=== PATIENT | female | born 1970 | race African-American/Black ===

== ENCOUNTER 2016-10-08 21:43 | Emergency (ER) | payer MEDICAID, OTHER ==
[~2016-10-08] VITALS: Ht 160 cm; Wt 72.6 kg
[2016-10-08] MEDS ORDERED: LORazepam 2MG/ML-1ML VIAL ONE (21:46)
[2016-10-08] MEDS ORDERED: LORazepam 2MG/ML-1ML VIAL IV ONE (22:00)
[2016-10-08] MEDS ORDERED: MORPHINE SULF INJ 2 MG/ML SYRINGE 1ML IV ONE (23:15)
[2016-10-08] MEDS ORDERED: ONDANSETRON HCL 4 MG/2 ML VIAL IV ONE (23:15)
[2016-10-08] MEDS ORDERED: cefTRIAXone 1GM/50ML D5W 50 ML IV ONE (23:15)
[2016-10-08 23:22] VITALS: BP 118/76
== END 2016-10-09 01:00 | disposition home or self-care (01) ==
LOC: EDBD 21:43 → ER 21:49
DX: H66.92 Otitis media, unspecified, left ear (principal); J02.9 Acute pharyngitis, unspecified; J45.909 Unspecified asthma, uncomplicated; B19.20 Unspecified viral hepatitis C without hepatic coma; E11.9 Type 2 diabetes mellitus without complications; K31.84 Gastroparesis; F17.210 Nicotine dependence, cigarettes, uncomplicated; F15.10 Other stimulant abuse, uncomplicated
CPT/HCPCS: 82962; 96365; 96375; 99284; J0696; J2060; J2270; J2405; J7030

== ENCOUNTER 2016-12-18 18:58 | Emergency (ER) | payer MEDICAID ==
[~2016-12-18] VITALS: Ht 170.2 cm; Wt 72.6 kg
[2016-12-18 20:12] LABS: Urine Bilirubin Negative (Negative); Urine Blood Negative /uL (Negative); Urine Color Yellow (Yellow); Urine Glucose 4+ mg/dL (Normal); Urine Ketone Negative (Negative); Urine Nitrite Negative (Negative); Urine RBC 1 /hpf (0 - 4); Urine Squamous Epithelial Cell FEW /hpf (<5); Urine Urobilinogen Normal (Negative); Urine pH 5.5 (5.0-8.0)
[2016-12-18 20:31] LABS: Basophils # (auto) 0 uL; Basophils % (auto) 0.4 % (0.0-2.0); DEFINITIVE VIEW TRANSMISSION; Eosinophils # (auto) 0.1 uL; Eosinophils % (auto) 0.7 % (0.0-7.0); Hemoglobin 14.3 g/dL (12.2-16.2); Lymphocytes # (auto) 2.4 uL; Lymphocytes % (auto) 29.7 % (10.0-50.0); Mean Corpuscular Hemoglobin 24.4 pg (28.0-32.0); Mean Corpuscular Hgb Conc. 33.3 g/dL (32.0-36.0); Mean Corpuscular Volume 73.3 fL (80.0-100.0); Mean Platelet Volume 8.2 fL (7.4-10.4); Monocytes # (auto) 0.4 uL; Monocytes % (auto) 4.6 % (0.0-12.0); Neutrophils # (auto) 5.2 uL; Neutrophils % (auto) 64.6 % (37.0-80.0); Platelet Count (auto) 221 10^3/uL (140-450)
[2016-12-18 20:52] LABS: INR 1.04 (0.9-1.15); Partial Thromboplastin Time 25.7 sec (22.64-33.71); Prothrombin Time 10.7 sec (9.37-12.3)
[2016-12-18 21:00] LABS: Albumin 3.2 g/dL (3.4-5.0); Anion Gap 11 (5-15); Aspartate Aminotransferase 42 U/L (15-37); BUN/Creatinine Ratio 25.3; Blood Urea Nitrogen 21 mg/dL (7-18); Carbon Dioxide 24 mmol/L (21-32); Chloride 98 mmol/L (98-107); GFR African American 95 mL/min; GFR Non-African American 79 mL/min; Glucose 359 mg/dL (74-106); Potassium 3.9 mmol/L (3.5-5.1); Sodium 133 mmol/L (136-145)
[2016-12-18] MEDS ORDERED: ONDANSETRON HCL 4 MG/2 ML VIAL IV ONE (21:00)
[2016-12-18] MEDS ORDERED: SODIUM CHLORIDE 0.9% 1,000 ML IV ONE (21:00)
[2016-12-18 21:03] LABS: Alkaline Phosphatase 196 U/L (45-117); Bilirubin, Total 0.2 mg/dL (0.2-1.0); Total Protein 8.4 g/dL (6.4-8.2)
[2016-12-18 21:17] LABS: Salicylate 1.7 mg/dL (2.8-20.0)
[2016-12-18 21:25] LABS: Acetaminophen < 2.0 ug/mL (10-30)
[2016-12-18] MEDS ORDERED: LORazepam 2MG/ML-1ML VIAL IV ONE (21:30)
[2016-12-18] MEDS ORDERED: ACETAMINOPHEN 325 MG TAB PO ONE (21:30)
[2016-12-18] MEDS ORDERED: LORazepam 2MG/ML-1ML VIAL ONE (21:33)
[2016-12-19] MEDS ORDERED: ZOLPIDEM TARTRATE 5 MG TAB ONE (00:43)
[2016-12-19] MEDS ORDERED: busPIRone HCL 10 MG TAB PO ONE (00:45)
[2016-12-19] MEDS ORDERED: DEXTROSE (50%) 50ML SYRG IV PRN (13:45)
[2016-12-19] MEDS ORDERED: LORazepam 0.5 MG TAB PO ONE (13:45)
[2016-12-19] MEDS ORDERED: InsuLIN REG 1unit/0.01ml Soln (100units/ml) ONE (13:59)
[2016-12-19] MEDS: InsuLIN REG 1unit/0.01ml Soln (100units/ml) SC SCH ×2 (14:25→22:53)
[2016-12-19] MEDS: ACCU-CHEK COMFORT CURVE STRIP VI SCH ×2 (17:00→22:00)
[2016-12-19] MEDS ORDERED: InsuLIN REG 1unit/0.01ml Soln (100units/ml) SC ONE (18:00)
[2016-12-19] MEDS ORDERED: ZOLPIDEM TARTRATE 5 MG TAB PO ONE (22:00)
[2016-12-19] MEDS ORDERED: HYDROcodone-ACET 5/325MG TAB PO ONE (22:45)
[2016-12-20] MEDS: ACCU-CHEK COMFORT CURVE STRIP VI SCH ×4 (08:43→22:03)
[2016-12-20] MEDS: InsuLIN REG 1unit/0.01ml Soln (100units/ml) SC SCH ×4 (08:43→22:04)
[2016-12-20] MEDS ORDERED: LORazepam 0.5 MG TAB PO ONE (11:45)
[2016-12-20] MEDS ORDERED: LORazepam 0.5 MG TAB ONE (11:46)
[2016-12-20] MEDS ORDERED: HYDROcodone-ACET 5/325MG TAB PO PRN (22:30)
[2016-12-20] MEDS ORDERED: ACETAMINOPHEN 325 MG TAB PO ONE ×2 (22:41→22:43)
[2016-12-20] MEDS: LORazepam 0.5 MG TAB PO PRN (22:48)
[2016-12-20] MEDS ORDERED: ACETAMINOPHEN 325 MG TAB PO PRN (23:00)
[2016-12-21] MEDS: ACCU-CHEK COMFORT CURVE STRIP VI SCH ×4 (07:00→22:06)
[2016-12-21] MEDS: InsuLIN REG 1unit/0.01ml Soln (100units/ml) SC SCH ×4 (07:00→22:00)
[2016-12-21] MEDS ORDERED: InsuLIN REG 1unit/0.01ml Soln (100units/ml) ONE ×2 (08:45→13:58)
[2016-12-21] MEDS ORDERED: SODIUM CHLORIDE 0.9% 1,000 ML IV ONE ×2 (13:10→22:15)
[2016-12-21] MEDS ORDERED: InsuLIN REG 1unit/0.01ml Soln (100units/ml) IV ONE ×6 (13:15→22:15)
[2016-12-21 14:54] LABS: BUN/Creatinine Ratio 22.4; Calcium 8.2 mg/dL (8.5-10.1); Magnesium 1.6 mg/dL (1.6-2.6)
[2016-12-21 15:08] LABS: Potassium 3.4 mmol/L (3.5-5.1)
[2016-12-21] MEDS: LORazepam 0.5 MG TAB PO PRN (15:55)
[2016-12-21] MEDS ORDERED: ZOLPIDEM TARTRATE 5 MG TAB PO ONE (21:45)
[2016-12-21] MEDS ORDERED: ZOLPIDEM TARTRATE 5 MG TAB ONE (21:53)
[2016-12-22] MEDS: ACCU-CHEK COMFORT CURVE STRIP VI SCH (06:46)
[2016-12-22] MEDS: InsuLIN REG 1unit/0.01ml Soln (100units/ml) SC SCH (06:48)
[2016-12-22 09:01] VITALS: BP 130/88
== END 2016-12-22 09:28 ==
LOC: EDUNIT# 18:58 → ER 19:19
DX: F32.9 Major depressive disorder, single episode, unspecified (principal); F20.9 Schizophrenia, unspecified; F15.10 Other stimulant abuse, uncomplicated; E11.65 Type 2 diabetes mellitus with hyperglycemia; F17.210 Nicotine dependence, cigarettes, uncomplicated; J45.909 Unspecified asthma, uncomplicated
CPT/HCPCS: 36415; 80048; 80053; 80320; 80329; 81001; 82010; 82962; 83735; 85025; 85610; 85730; 96361; 96372; 96374; 96375; 99284; G0434; J1815; J2060; J2405; J7030

== ENCOUNTER 2017-01-25 07:02 | Observation (INO) | payer MEDICAID ==
[~2017-01-25] VITALS: Ht 162.6 cm; Wt 74.8 kg
[2017-01-25] MEDS ORDERED: SODIUM CHLORIDE 0.9% 1,000 ML IV ONE (09:53)
[2017-01-25] MEDS ORDERED: SODIUM CHLORIDE 0.9% 1,000 ML IVB ONE (09:53)
[2017-01-25] MEDS ORDERED: METOCLOPRAMIDE HCL 5MG/ml INJ 2ml VIAL IV ONE (10:00)
[2017-01-25] MEDS ORDERED: NALBUPHINE HCL 10 MG/1ml INJECTION IV ONE (10:00)
[2017-01-25 10:16] LABS: Urine Bilirubin Negative (Negative); Urine Blood Negative /uL (Negative); Urine Color Yellow (Yellow); Urine Ketone Negative (Negative); Urine Nitrite Negative (Negative); Urine RBC <1 /hpf (0 - 4); Urine Squamous Epithelial Cell FEW /hpf (<5); Urine Urobilinogen Normal (Negative)
[2017-01-25 10:18] LABS: Urine Glucose 4+ mg/dL (Normal)
[2017-01-25 10:59] LABS: Basophils # (auto) 0 uL; Basophils % (auto) 0.3 % (0.0-2.0); DEFINITIVE VIEW TRANSMISSION; Eosinophils # (auto) 0.1 uL; Hemoglobin 12.8 g/dL (12.2-16.2); Lymphocytes # (auto) 2.3 uL; Lymphocytes % (auto) 31.9 % (10.0-50.0); Mean Corpuscular Hgb Conc. 32.9 g/dL (32.0-36.0); Mean Corpuscular Volume 75.8 fL (80.0-100.0); Mean Platelet Volume 7.9 fL (7.4-10.4); Monocytes # (auto) 0.4 uL; Monocytes % (auto) 5.5 % (0.0-12.0); Neutrophils # (auto) 4.4 uL; Neutrophils % (auto) 61.3 % (37.0-80.0); Platelet Count (auto) 176 10^3/uL (140-450); Red Cell Distribution Width 16.6 % (11.6-16.0); White Blood Cell 7.2 10^3/uL (4.4-10.8)
[2017-01-25 11:04] LABS: BUN/Creatinine Ratio 18.8; Bilirubin, Total 0.2 mg/dL (0.2-1.0); Calcium 8.8 mg/dL (8.5-10.1); Magnesium 1.7 mg/dL (1.6-2.6); Potassium 3.9 mmol/L (3.5-5.1); Total Protein 7.6 g/dL (6.4-8.2)
[2017-01-25 11:11] VITALS: BP 91/54
== END 2017-01-25 12:53 | disposition home or self-care (01) | DRG 254 ==
LOC: ER 07:02 → OVERFLOW 09:57 → ER 12:53
PROVIDERS: ADMIT Emergency Medicine; ATTEND Emergency Medicine
DX: K31.84 Gastroparesis (principal); E11.65 Type 2 diabetes mellitus with hyperglycemia; E44.1 Mild protein-calorie malnutrition; J45.909 Unspecified asthma, uncomplicated; Z90.49 Acquired absence of other specified parts of digestive tract; F17.210 Nicotine dependence, cigarettes, uncomplicated; F31.9 Bipolar disorder, unspecified; Z86.19 Personal history of other infectious and parasitic diseases
CPT/HCPCS: 36415; 71020; 74176; 80053; 81001; 81025; 83735; 84443; 85025; 96374; 96375; 99285; G0378; J2300; J2765; J7030

== ENCOUNTER 2017-03-09 18:37 | Emergency (ER) | payer MEDICAID | END 2017-03-09 19:21 | disposition left against medical advice (07) | LOC: ER 18:40 | DX: F29 Unspecified psychosis not due to a substance or known physiological condition (principal); Z53.21 Procedure and treatment not carried out due to patient leaving prior to being seen by health care provider ==